=== PATIENT | male | born 1960 | race Caucasian/White ===

== ENCOUNTER 2024-01-12 20:51 | Emergency (ER) | payer BC ==
[2024-01-12] MEDS: Bacitracin Oint 1 GM U/D Packet TOP ONE (22:48)
== END 2024-01-12 23:09 | disposition home or self-care (01) ==
LOC: JP.ED 20:51
DX: S81.812A Laceration without foreign body, left lower leg, initial encounter (principal); Z87.891 Personal history of nicotine dependence; W16.722A Jumping or diving from boat striking bottom causing other injury, initial encounter
CPT/HCPCS: 12001; 12032; 99282; 99283